=== PATIENT | female | born 1950 | race Caucasian/White ===

== ENCOUNTER 2021-11-03 17:28 | Emergency (ER) | payer MEDICARE ==
[~2021-11-03] VITALS: Ht 165.1 cm; Wt 72.6 kg
[2021-11-03 18:46] LABS: HEMOGLOBIN 14.3 gm/dl (12.3-15.3); RED BLOOD COUNT 4.56 M/UL (4.00-5.10); WHITE BLOOD COUNT 6.8 K/UL (4.5-11.0)
[2021-11-03 19:15] LABS: BUN/CREATININE RATIO 16 (0-10)
== END 2021-11-03 22:30 | disposition home or self-care (01) ==
LOC: ER1 17:28
PROVIDERS: Physician Assistant
DX: I48.91 Unspecified atrial fibrillation (principal); M79.662 Pain in left lower leg; Z79.82 Long term (current) use of aspirin
CPT/HCPCS: 71045; 71275; 80053; 81001; 82550; 82553; 83036; 84439; 84443; 84484; 85025; 85379; 87086; 93005; 99285; Q9967